=== PATIENT | female | born 1940 | race Caucasian/White ===

== ENCOUNTER 2017-08-28 14:25 | Outpatient (CLI) | payer MEDICARE, MEDICAID ==
[~2017-08-28 14:25] MED LIST: ASPIR 8181 MG ORAL; GABAPENTIN400 MG ORAL; LEVOTHYROXINE75 MCG ORAL; LORAZEPAM0.5 MG ORAL; MULTIVITAMINS1 EAC2 ORAL; NAMENDA5 MG ORAL; TRIHEXYPHENIDYL2 MG ORAL; ZYPREXA10 MG ORAL
[2017-08-28 15:40] VITALS: BP 121/68
--- NOTE | 2017-08-28 16:16 | GI Initial Consult Note ---
BritneyMary Cameron N.P. 08/28/17 1616: History of Present Illness General Date patient seen: Aug 28, 2017 Time patient seen: 16:10 Referring physician: RENEE Reason for Consultation: MELENA/TARRY STOOLS Present Illness HPI 70 year old female patient referred by Dr. Rees for complaint of black tarry stools. Last colonoscopy was performed in 2011 noted with a colonic polyp and H. pylori positive. She presents today c/o of black tarry stools / melena. Denies any abdominal pain. Denies any unintentional weight loss or changes in dietary habits. No signs of abuse or neglect. Patient is not fall risk. Home Meds Reported Medications Calcium Carbonate (CALCIUM) 500 Mg Tab.chew, 500 MG PO DAILY, TAB 09/03/17 Multivitamins* (MULTIVITAMINS*) 1 Each Tablet, 1 TAB ORAL DAILY, TAB 0 Refills 08/01/14 Aspirin* (ASPIR 81*) 81 Mg Tablet.dr, 81 MG ORAL DAILY, TAB 08/01/14 Levothyroxine Sodium* (LEVOTHYROXINE SODIUM*) 75 Mcg Tablet, 75 MCG ORAL DAILY, TAB Take in the morning on an empty stomach, at least 30 minutes before food. 08/01/14 Gabapentin* (GABAPENTIN*) 400 Mg Capsule, 400 MG ORAL TWICE A DAY, CAP 0 Refills 08/01/14 Trihexyphenidyl Hcl* (ARTANE*) 2 Mg Tablet, 2 MG ORAL TWICE A DAY, TAB 08/01/14 Olanzapine* (ZYPREXA*) 10 Mg Tablet, 10 MG ORAL BEDTIME, #30 TAB 0 Refills 08/01/14 Discontinued Reported Medications Memantine Hcl* (NAMENDA*) 5 Mg Tablet, 5 MG ORAL DAILY, TAB 08/02/14 Lorazepam* (LORAZEPAM*) 0.5 Mg Tablet, 2.5 MG ORAL BEDTIME, TAB 08/01/14 Med list reviewed/reconciled: Yes Allergies: Coded Allergies: No Known Allergies (Unverified , 09/03/17) Patient History Limited by: medical condition History Provided By: Patient, Medical Record, Caregiver PMH Narrative PAST MEDICAL HISTORY AND REVIEW OF SYSTEMS: Remarkable for hyperlipidemia, thyroid cancer, and total thyroidectomy, also right breast cancer with total radical right mastectomy. No history of stroke or seizures. No heart attack. Denies history of diabetes. No history of anemia. No respiratory problems. No renal failure. No hepatitis. PAST SURGICAL HISTORY: Thyroidectomy and right radical mastectomy. Family History Narrative Mother with pancreatic CA Father >> unknown type of CA Social History: Denies: smoking, alcohol use, drug use, other Review of Systems All Other Systems: negative except mentioned in HPI Physical Exam Vital Signs Date Time Temp Pulse Resp B/P (MAP) Pulse Ox O2 Delivery O2 Flow Rate FiO2 08/28/17 15:40 99.0 81 121/68 94 99.0 Sp02 EP Interpretation: reviewed, normal General Appearance: well appearing, no apparent distress, alert, thin Head: normocephalic EENT: PERRL/EOMI, normal ENT inspection Neck: supple Respiratory: normal breath sounds, no respiratory distress Cardiovascular: normal rate Gastrointestinal: normal inspection, non tender, soft, normal bowel sounds, non -distended Rectal: deferred Genitourinary: no CVA tenderness Musculoskeletal: normal inspection, back normal Neurologic: normal inspection, alert, oriented x3, responsive Psychiatric: normal inspection, judgement/insight normal, memory normal Skin: normal inspection, normal color, no rash, warm/dry, palpation normal, well hydrated Lymphatic: normal inspection, no adenopathy GI: Plan Problems: (1) Black tarry stools (2) Encounter for diagnostic endoscopy (3) Colonoscopy planned (4) GERD (gastroesophageal reflux disease) (5) History of breast cancer Plan EGD scheduled tomorrow 08/29/16, colonoscopy scheduled 09/03/16. - CLD & (Nulytely/Suprep/Movi-Prep) prep instructions given and acknowledged by patient. - NPO @ DC day prior procedure explained. Seen with Dr. Montoya. Thank you for this patient referral. ROBERT MONTOYA 09/03/17 1219: History of Present Illness Present Illness Home Meds Reported Medications Calcium Carbonate (CALCIUM) 500 Mg Tab.chew, 500 MG PO DAILY, TAB 09/03/17 Multivitamins* (MULTIVITAMINS*) 1 Each Tablet, 1 TAB ORAL DAILY, TAB 0 Refills 08/01/14 Aspirin* (ASPIR 81*) 81 Mg Tablet.dr 81 MG ORAL DAILY, TAB 08/01/14 Levothyroxine Sodium* (LEVOTHYROXINE SODIUM*) 75 Mcg Tablet, 75 MCG ORAL DAILY, TAB Take in the morning on an empty stomach, at least 30 minutes before food. 08/01/14 Gabapentin* (GABAPENTIN*) 400 Mg Capsule, 400 MG ORAL TWICE A DAY, CAP 0 Refills 08/01/14 Trihexyphenidyl Hcl* (ARTANE*) 2 Mg Tablet, 2 MG ORAL TWICE A DAY, TAB 08/01/14 Olanzapine* (ZYPREXA*) 10 Mg Tablet, 10 MG ORAL BEDTIME, #30 TAB 0 Refills 08/01/14 Discontinued Reported Medications Memantine Hcl* (NAMENDA*) 5 Mg Tablet, 5 MG ORAL DAILY, TAB 08/02/14 Lorazepam* (LORAZEPAM*) 0.5 Mg Tablet, 2.5 MG ORAL BEDTIME, TAB 08/01/14 Allergies: Coded Allergies: No Known Allergies (Unverified , 09/03/17) GI: Plan Plan The patient was seen and examined at bedside and all new and available data was reviewed in the patients chart. I agree with the above findings, impression and plan. (Patient seen earlier today. Signature stamp does not reflect patient encounter time.). - [facility] Cameron NKeon Aug 28, 2017 16:16 ROBERT MONTOYA Sep 03, 2017 12:19
== END 2017-08-28 14:57 | disposition home or self-care (01) ==
LOC: PAN 14:25
DX: K21.9 Gastro-esophageal reflux disease without esophagitis (principal); Z85.3 Personal history of malignant neoplasm of breast; K92.1 Melena; Z79.82 Long term (current) use of aspirin; Z85.850 Personal history of malignant neoplasm of thyroid; E78.5 Hyperlipidemia, unspecified; Z90.11 Acquired absence of right breast and nipple
CPT/HCPCS: 99201

== ENCOUNTER 2017-08-29 08:56 | Day surgery (SDC) | payer MEDICARE, MEDICAID ==
[2017-08-29] VITALS (7 sets, daily range): BP systolic 138–148; BP diastolic 72–82
[~2017-08-29] VITALS: Ht 157.5 cm; Wt 54.0 kg
--- NOTE | 2017-08-29 10:12 | Pre-Procedure Note/Attestation ---
Pre-Procedure Note/Attestation Complete Prior to Procedure Planned Procedure: not applicable Procedure Narrative: egd Indications for Procedure Pre-Operative Diagnosis: gib Attestation I attest that I discussed the nature of the procedure; its benefits; risks and complications; and alternatives (and the risks and benefits of such alternatives ), prior to the procedure, with the patient (or the patient's legal pharmaceutical specialty representative). I attest that, if there was a reasonable possibility of needing a blood transfusion, the patient (or the patient's legal pharmaceutical specialty representative) was given the [facility] standardized written summary, pursuant to the [place] Blood Safety Act ([place] Health and Safety Code # 1645, as amended). I attest that I re-evaluated the patient just prior to the surgery and that there has been no change in the patient's H&P, except as documented below: ROBERT WARD Aug 29, 2017 10:12
--- NOTE | 2017-08-29 10:13 | Short Stay Surgery H&P ---
History of Present Illness History of Present Illness Chief Complaint see recent consult HPI Merary Childs is a 77 year old female who was admitted on for GERD Patient History Allergies: Coded Allergies: AMOXICILLIN (Verified Allergy, Intermediate, hives, 08/01/14) PAST MEDICAL HISTORY: Past Surgeries: Social History: Medication History Scheduled Aspirin* (Aspir 81*), 81 MG ORAL DAILY, (Reported) Gabapentin* (Gabapentin*), 400 MG ORAL TWICE A DAY, (Reported) Levothyroxine Sodium* (Levothyroxine Sodium*), 75 MCG ORAL DAILY, (Reported) Lorazepam* (Lorazepam*), 2.5 MG ORAL BEDTIME, (Reported) Memantine Hcl* (Namenda*), 5 MG ORAL DAILY, (Reported) Multivitamins* (Multivitamins*), 1 TAB ORAL DAILY, (Reported) Olanzapine* (Zyprexa*), 10 MG ORAL BEDTIME, (Reported) Trihexyphenidyl Hcl* (Artane*), 2 MG ORAL TWICE A DAY, (Reported) Plan Attestation Are the patient's medical conditions optimized for surgery? ROBERT WARD Aug 29, 2017 10:13
[2017-08-29 12:51] LABS: BASOPHILS % (AUTO) 0.5 % (0.0-2.0); EOSINOPHILS % (AUTO) 0.1 % (0.0-3.0); HEMATOCRIT 31.9 % (37.0-47.0); HEMOGLOBIN 10.5 G/DL (12.0-16.0); LYMPHOCYTES % (AUTO) 25.2 % (20.0-45.0); MEAN CORPUSCULAR VOLUME 95 FL (80-99); NEUTROPHILS % (AUTO) 67.2 % (45.0-75.0); PLATELET COUNT 230 K/UL (150-450); RED BLOOD COUNT 3.35 M/UL (4.20-5.40); RED CELL DISTRIBUTION WIDTH 11.5 % (11.6-14.8); WHITE BLOOD COUNT 5.9 K/UL (4.8-10.8)
[2017-08-29 12:54] LABS: ANION GAP 6 mmol/L (5-15); BLOOD UREA NITROGEN 21 mg/dL (7-18); CALCIUM 9.4 MG/DL (8.5-10.1); CARBON DIOXIDE 30 MMOL/L (21-32); CHLORIDE 104 MMOL/L (98-107); POTASSIUM 4.5 MMOL/L (3.5-5.1); SODIUM 140 MMOL/L (136-145)
[2017-08-29] MEDS ORDERED: Lidocaine 1% MPF 10mg/ml 5ml ONE (13:50)
[2017-08-29] MEDS ORDERED: Propofol 200mg/20ml IV ONE ×2 (13:50→14:00)
[2017-08-29] MEDS ORDERED: LR 1000ml ONE (13:50)
--- NOTE | 2017-08-29 14:03 | Endoscopy Procedure Note ---
Endoscopy Procedure Note General Indication for Procedure: gib Procedures Performed: EGD Operative Findings/Diagnosis: gu Specimen: yes Pt Tolerated Procedure Well: Yes Estimated Blood Loss: none Anesthesia Anesthesiologist: memo Anesthesia: MAC Inserted Devices Implant(s) used?: No GI Core Measures 50 yrs or older w/o bx or poly: Not Applicable 10yrs. F/U not recommended: Not Applicable ROBERT WARD Aug 29, 2017 14:03
--- NOTE | 2017-08-29 14:15 | Immediate Post-Op Evaluation ---
Immediate Post-Op Evalulation Immediate Post-Op Evalulation Procedure: EGD Date of Evaluation: Aug 29, 2017 Time of Evaluation: 14:14 IV Fluids: 100 Blood Pressure Systolic: 130 Blood Pressure Diastolic: 74 Pulse Rate: 59 Respiratory Rate: 14 O2 Sat by Pulse Oximetry: 100 Temperature (Fahrenheit): 97.3 Nausea: No Vomiting: No Complications none Patient Status: awake, reacts, patent Hydration Status: adequate Drug: none KIMBERLY HOU CRNA Aug 29, 2017 14:15
--- NOTE | 2017-08-29 14:17 | Anethesia Preoperative Eval ---
Anesthesia Pre-op PMH/ROS General Date of Evaluation: Aug 29, 2017 Time of Evaluation: 14:50 Anesthesiologist: Latisha ASA Score: ASA 2 Mallampati Score Class I : Soft palate, uvula, fauces, pillars visible Class II: Soft palate, uvula, fauces visible Class III: Soft palate, base of uvula visible Class IV: Only hard plate visible Mallampati Classification: Class II Surgeon: belkis Diagnosis: GERD Surgical Procedure: EGD Anesthesia History: none Family History: no anesthesia problems Allergies: Coded Allergies: No Known Allergies (Unverified , 08/29/17) Medications: see eMAR Past Medical History Cardiovascular: Denies: HTN, CAD, TN, valve dz, arrhythmia, other Pulmonary: Denies: asthma, COPD, YARA, other Gastrointestinal/Genitourinary: Reports: GERD, Denies: CRI, ESRD, other Neurologic/Psychiatric: Denies: dementia, CVA, depression/anxiety, TIA, other Endocrine: Reports: hypothyroidism, Denies: DM, steroids, other HEENT: Denies: cataract (L), cataract (R), glaucoma, [place] (L), [place] (R), other Musculoskeletal/Integumentary: Denies: OA, RA, DJD, DDD, edema, other PSxH Narrative: breast ca/mastectomy Anesthesia Pre-op Phys. Exam Physician Exam Last Vital Signs Date Time Temp Pulse Resp B/P (MAP) Pulse Ox O2 Delivery O2 Flow Rate FiO2 08/29/17 11:52 98.0 53 18 139/74 97 Room Air 98.0 Constitutional: NAD Neurologic: CN 2-12 intact Cardiovascular: RRR Respiratory: CTA Gastrointestinal: S/NT/ND Airway Exam Mallampati Classification 2 Mallampati Score: Class II MO: full ROM: full Dentures: no upper, no lower Anesthesia Pre-op A/P Labs Hematology Test 08/29/17 12:35 White Blood Count 5.9 K/UL (4.8-10.8) Red Blood Count 3.35 M/UL (4.20-5.40) L Hemoglobin 10.5 G/DL (12.0-16.0) L Hematocrit 31.9 % (37.0-47.0) L Mean Corpuscular Volume 95 FL (80-99) Mean Corpuscular Hemoglobin 31.5 PG (27.0-31.0) H Mean Corpuscular Hemoglobin Concent 33.1 G/DL (32.0-36.0) Red Cell Distribution Width 11.5 % (11.6-14.8) L Platelet Count 230 K/UL (150-450) Mean Platelet Volume 7.0 FL (6.5-10.1) Neutrophils (%) (Auto) 67.2 % (45.0-75.0) Lymphocytes (%) (Auto) 25.2 % (20.0-45.0) Monocytes (%) (Auto) 7.0 % (1.0-10.0) Eosinophils (%) (Auto) 0.1 % (0.0-3.0) Basophils (%) (Auto) 0.5 % (0.0-2.0) Chemistry Test 08/29/17 12:35 Sodium Level 140 MMOL/L (136-145) Potassium Level 4.5 MMOL/L (3.5-5.1) Chloride Level 104 MMOL/L (98-107) Carbon Dioxide Level 30 MMOL/L (21-32) Anion Gap 6 mmol/L (5-15) Blood Urea Nitrogen 21 mg/dL (7-18) H Creatinine 1.0 MG/DL (0.55-1.30) Estimat Glomerular Filtration Rate mL/min (>60) Glucose Level 92 MG/DL (74-106) Calcium Level 9.4 MG/DL (8.5-10.1) Studies Pre-op Studies: EKG - sr Risk Assessment & Plan Assessment: na Plan: mac Status Change Before Surgery: No Pre-Antibiotics Drug: none IKMBERLY HOU CRNA Aug 29, 2017 14:17
--- NOTE | 2017-08-29 14:46 | 48 Hour Post Anesthesia Eval ---
Post Anesthesia Evaluation Procedure: EGD Date of Evaluation: Aug 29, 2017 Time of Evaluation: 14:45 Blood Pressure Systolic: 139 0: 74 Pulse Rate: 70 Respiratory Rate: 14 O2 Sat by Pulse Oximetry: 99 Airway: patent Nausea: No Vomiting: No Hydration Status: adequate Mental Status/LOC: patient returned to baseline Post-Anesthesia Complications: none Follow-up care needed: N/A KIMBERLY HOU CRNA Aug 29, 2017 14:46
--- NOTE | 2017-08-29 19:15 | Procedure Note ---
DATE OF PROCEDURE: 08/29/2017 SURGEON: Brett Montoya M.D. ANESTHESIOLOGIST: Lauren Good CRNA. REFERRING PHYSICIAN: Dr. Rees. PROCEDURE: Upper endoscopy with biopsy. ANESTHESIA: Per Lauren BOGGS. INSTRUMENT: Olympus adult flexible upper endoscope. INDICATION: Upper GI bleeding. The procedure, risks, benefits, and possible consequences, including hemorrhage, aspiration, perforation and infection, and alternative treatments, were explained to the patient/legal guardian by Dr. Brett Montoya and the patient/legal guardian understood and accepted these risks. DESCRIPTION OF PROCEDURE: After informed consent was obtained and the patient was adequately sedated, Olympus upper endoscope was advanced from mouth to the second portion of duodenum and retroflexion was performed in the stomach. The patient had roughly about 1-cm ulcer below the cardia of the stomach around the greater curvature without any visible vessel or adherent clot, most probably the source of bleeding. The patient had evidence of mild duodenitis, mild gastritis. Random biopsy from antrum and body was obtained to rule out H. pylori infection. The patient tolerated the procedure well without any complication. SUMMARY OF FINDINGS: 1. Gastric ulcer, status post biopsy of the antrum and body to rule out H. pylori infection. 2. Also, status post biopsy of the edge of the ulcer, rule out malignancy. RECOMMENDATIONS: The patient to be started on PPI daily. Monitor hemoglobin and hematocrit and transfuse as needed. The patient is scheduled to come back for colonoscopy on next week. I want to thank, Dr. Rees, for this kind referral. Brett Montoya M.D. DR: Sven JOB#: [id number] CC: Hetal Rees
--- NOTE | 2017-09-03 20:21 | Cardiology Report ---
APPROVED REPORT EKG Measurement Heart [id number] FL [id number] [id number] Sinus bradycardia Moderate voltage criteria for LVH, may be normal variant Borderline ECG
== END 2017-08-29 15:00 | disposition home or self-care (01) ==
LOC: GAS 08:56
DX: K25.9 Gastric ulcer, unspecified as acute or chronic, without hemorrhage or perforation (principal); K29.50 Unspecified chronic gastritis without bleeding; B96.81 Helicobacter pylori [H. pylori] as the cause of diseases classified elsewhere; K29.80 Duodenitis without bleeding; K21.9 Gastro-esophageal reflux disease without esophagitis; Z79.82 Long term (current) use of aspirin; Z88.8 Allergy status to other drugs, medicaments and biological substances; E03.9 Hypothyroidism, unspecified; Z85.3 Personal history of malignant neoplasm of breast; Z90.10 Acquired absence of unspecified breast and nipple
CPT/HCPCS: 36415; 43239; 80048; 85025; 93005; J2704; J7120; 94003; 94150

== ENCOUNTER 2017-09-03 07:07 | Day surgery (SDC) | payer MEDICARE, MEDICAID ==
[2017-09-03] VITALS (9 sets, daily range): BP systolic 118–137; BP diastolic 60–77
[~2017-09-03] VITALS: Ht 165.1 cm; Wt 53.1 kg
[2017-09-03] MEDS ORDERED: CALCIUM500 M3 PO (08:04)
[2017-09-03] MEDS ORDERED: Midazolam 2mg/2ml Inj ONE (09:00)
[2017-09-03] MEDS ORDERED: Propofol 200mg/20ml IV ONE (09:00)
[2017-09-03] MEDS ORDERED: Lidocaine 1% MPF 10mg/ml 5ml ONE (09:00)
--- NOTE | 2017-09-03 09:00 | Pre-Procedure Note/Attestation ---
Pre-Procedure Note/Attestation Complete Prior to Procedure Planned Procedure: not applicable Procedure Narrative: colonoscopy Indications for Procedure Pre-Operative Diagnosis: screening Attestation I attest that I discussed the nature of the procedure; its benefits; risks and complications; and alternatives (and the risks and benefits of such alternatives ), prior to the procedure, with the patient (or the patient's legal promotional representative). I attest that, if there was a reasonable possibility of needing a blood transfusion, the patient (or the patient's legal promotional representative) was given the [facility] standardized written summary, pursuant to the [place] Blood Safety Act ([place] Health and Safety Code # 1645, as amended). I attest that I re-evaluated the patient just prior to the surgery and that there has been no change in the patient's H&P, except as documented below: ROBERT WARD Sep 03, 2017 09:00
--- NOTE | 2017-09-03 09:00 | Short Stay Surgery H&P ---
History of Present Illness History of Present Illness Chief Complaint see recent consult note HPI Merary Childs is a 77 year old female who was admitted on for Hx Of Colon Polyps Patient History Allergies: Coded Allergies: No Known Allergies (Unverified , 09/03/17) PAST MEDICAL HISTORY: Past Surgeries: Social History: Medication History Scheduled Aspirin* (Aspir 81*), 81 MG ORAL DAILY, (Reported) Calcium Carbonate (Calcium), 500 MG PO DAILY, (Reported) Gabapentin* (Gabapentin*), 400 MG ORAL TWICE A DAY, (Reported) Levothyroxine Sodium* (Levothyroxine Sodium*), 75 MCG ORAL DAILY, (Reported) Multivitamins* (Multivitamins*), 1 TAB ORAL DAILY, (Reported) Olanzapine* (Zyprexa*), 10 MG ORAL BEDTIME, (Reported) Trihexyphenidyl Hcl* (Artane*), 2 MG ORAL TWICE A DAY, (Reported) Discontinued Medications Lorazepam* (Lorazepam*), 2.5 MG ORAL BEDTIME, (Reported) Discontinued Reason: Pt stopped taking med Memantine Hcl* (Namenda*), 5 MG ORAL DAILY, (Reported) Discontinued Reason: Pt stopped taking med Physical Exam Vital Signs Last Vital Signs Date Time Temp Pulse Resp B/P (MAP) Pulse Ox O2 Delivery O2 Flow Rate FiO2 09/03/17 07:42 96.8 58 18 129/66 99 Room Air 96.8 Plan Attestation Are the patient's medical conditions optimized for surgery? ROBERT WARD Sep 03, 2017 09:00
--- NOTE | 2017-09-03 09:24 | Anethesia Preoperative Eval ---
Anesthesia Pre-op PMH/ROS General Date of Evaluation: Sep 03, 2017 Time of Evaluation: 08:47 Anesthesiologist: Citlali ASA Score: ASA 2 Mallampati Score Class I : Soft palate, uvula, fauces, pillars visible Class II: Soft palate, uvula, fauces visible Class III: Soft palate, base of uvula visible Class IV: Only hard plate visible Mallampati Classification: Class I Surgeon: Lindsay Diagnosis: hx of colon polyp Surgical Procedure: Colonoscopy Anesthesia History: none Family History: no anesthesia problems Allergies: Coded Allergies: No Known Allergies (Unverified , 09/03/17) Medications: see eMAR Past Medical History Cardiovascular: Reports: HTN Pulmonary: Denies: asthma, COPD, YARA, other Gastrointestinal/Genitourinary: Reports: GERD, other - hx of black stary stools Neurologic/Psychiatric: Reports: depression/anxiety, other - bipolar disorder, Parkinson's Dx Endocrine: Reports: other - thyroid CA, breast CA, Gout HEENT: Reports: cataract (L), cataract (R) Hematology/Immune: Denies: anemia, DVT, bleeding disorder, other Musculoskeletal/Integumentary: Reports: OA PSxH Narrative: thyroidectomy 2013, Right hip lesion removal 2009, R breast mastectomy Anesthesia Pre-op Phys. Exam Physician Exam Last Vital Signs Date Time Temp Pulse Resp B/P (MAP) Pulse Ox O2 Delivery O2 Flow Rate FiO2 09/03/17 07:42 96.8 58 18 129/66 99 Room Air 96.8 Constitutional: NAD Neurologic: CN 2-12 intact Cardiovascular: RRR Respiratory: CTA Gastrointestinal: S/NT/ND Airway Exam Mallampati Score: Class I MO: full ROM: full Teeth: intact Dentures: no upper, no lower Anesthesia Pre-op A/P Labs chart reviewed Studies Pre-op Studies: EKG - NSB 52 bpm Risk Assessment & Plan Assessment: A&Ox3 Plan: MAC Status Change Before Surgery: No Pre-Antibiotics Given Within 1 Hr of Incision: No - none per surgeon Irene Godwin CRNA Sep 03, 2017 09:24
--- NOTE | 2017-09-03 09:25 | 48 Hour Post Anesthesia Eval ---
Post Anesthesia Evaluation Procedure: Colonoscopy with biopsy x 3 polyps Date of Evaluation: Sep 03, 2017 Time of Evaluation: 09:54 Blood Pressure Systolic: 122 0: 67 Pulse Rate: 60 Respiratory Rate: 18 Temperature (Fahrenheit): 98.2 O2 Sat by Pulse Oximetry: 99 Airway: patent Nausea: No Vomiting: No Pain Intensity: 0 Hydration Status: adequate Mental Status/LOC: patient returned to baseline Post-Anesthesia Complications: none noted, pt feeling slightly gassy but no other pain noted Follow-up care needed: patient intructions given Irene Godwin CRNA Sep 03, 2017 09:25
--- NOTE | 2017-09-03 09:25 | Immediate Post-Op Evaluation ---
Immediate Post-Op Evalulation Immediate Post-Op Evalulation Procedure: Colonoscopy with biopsy Date of Evaluation: Sep 03, 2017 Time of Evaluation: 09:40 IV Fluids: NSS 500 ml Blood Products: 0 Estimated Blood Loss: 0 Urinary Output: 0 Blood Pressure Systolic: 126 Blood Pressure Diastolic: 66 Pulse Rate: 58 Respiratory Rate: 15 O2 Sat by Pulse Oximetry: 98 Temperature (Fahrenheit): 98.2 Pain Score (1-10): 0 Nausea: No Vomiting: No Complications none noted Patient Status: awake, reacts, patent Hydration Status: adequate Given Within 1 Hr of Incision: Irene Godinez CRNA Sep 03, 2017 09:25
--- NOTE | 2017-09-03 09:35 | Endoscopy Procedure Note ---
Endoscopy Procedure Note General Indication for Procedure: screening Procedures Performed: colonoscopy Operative Findings/Diagnosis: 3 polyps Specimen: yes Pt Tolerated Procedure Well: Yes Estimated Blood Loss: minimal Anesthesia Anesthesiologist: sanaz Anesthesia: MAC Inserted Devices Implant(s) used?: No Quality Quality of Bowel Preparation: Good Did scope reach the cecum?: Yes Was there any complications?: No GI Core Measures 50 yrs or older w/o bx or poly: No 10yrs. F/U not recommended: Yes If not recommended, why?: Above average risk 10 yrs. F/U needed: Yes 18 years or older w/prev. colo: No <3yrs. since last colonoscopy: No ROBERT WARD Sep 03, 2017 09:35
[2017-09-03 10:16] LABS: BASOPHILS % (AUTO) 0.4 % (0.0-2.0); EOSINOPHILS % (AUTO) 0.2 % (0.0-3.0); HEMATOCRIT 30.2 % (37.0-47.0); HEMOGLOBIN 10.1 G/DL (12.0-16.0); LYMPHOCYTES % (AUTO) 22.5 % (20.0-45.0); MEAN CORPUSCULAR VOLUME 94 FL (80-99); MONOCYTES % (AUTO) 9.3 % (1.0-10.0); NEUTROPHILS % (AUTO) 67.7 % (45.0-75.0); PLATELET COUNT 250 K/UL (150-450); RED CELL DISTRIBUTION WIDTH 11.6 % (11.6-14.8); WHITE BLOOD COUNT 4.3 K/UL (4.8-10.8)
--- NOTE | 2017-09-03 14:15 | Cardiology Report ---
APPROVED REPORT EKG Measurement Heart [id number] NV 144P3 [id number] Sinus bradycardia Minimal voltage criteria for LVH, may be normal variant Borderline ECG
--- NOTE | 2017-09-03 15:02 | Procedure Note ---
DATE OF PROCEDURE: 09/03/2017 SURGEON: Brett Montoya M.D. ANESTHESIA: Per Citlali BOGGS. PROCEDURE: Colonoscopy with snare polypectomy and biopsy. INSTRUMENT: Olympus adult flexible colonoscope. INDICATIONS: Screening colonoscopy. The procedure, risks, benefits, and possible consequences, including hemorrhage, aspiration, perforation and infection, and alternative treatments, were explained to the patient/legal guardian by Dr. Brett Montoya and the patient/legal guardian understood and accepted these risks. DESCRIPTION OF PROCEDURE: After informed consent was obtained and the patient was adequately sedated, first rectal exam was performed, which was positive for internal and external hemorrhoids. Then, the scope was advanced from rectum into the cecum, then subsequently into the terminal ileum. Quality of prep was good. The patient had a total of three polyps, one in the proximal ascending colon. Diminutive polyp removed with the cold biopsy forceps technique. Then, the patient had one sessile polyp measured roughly about 4 mm to 5 mm in the proximal transverse colon, removed with a hot snare polypectomy technique. The patient had one diminutive polyp in the sigmoid area removed with a cold biopsy forceps technique. The retroflexion in the rectum showed evidence of internal hemorrhoid. Otherwise, the rest of the colonoscopic examination grossly within normal limits. The patient tolerated the procedure well without any complication. SUMMARY OF FINDINGS: 1. Internal and external hemorrhoids. 2. Three colonic polyps removed. See above for details. RECOMMENDATIONS: 1. Follow biopsy results and treat accordingly. 2. Given three polyps, recommended repeat colonoscopy in three years. Brett Montoya M.D. DR: LULY JOB#: [id number] CC:
== END 2017-09-03 11:15 | disposition home or self-care (01) ==
LOC: GAS 07:07
DX: Z12.11 Encounter for screening for malignant neoplasm of colon (principal); K64.4 Residual hemorrhoidal skin tags; K64.8 Other hemorrhoids; K63.5 Polyp of colon; R00.1 Bradycardia, unspecified; Z79.82 Long term (current) use of aspirin; I10 Essential (primary) hypertension; K21.9 Gastro-esophageal reflux disease without esophagitis; F41.9 Anxiety disorder, unspecified; F32.9 Major depressive disorder, single episode, unspecified; F31.9 Bipolar disorder, unspecified; G20 Parkinson's disease; Z85.3 Personal history of malignant neoplasm of breast; Z85.850 Personal history of malignant neoplasm of thyroid; M19.90 Unspecified osteoarthritis, unspecified site; E89.0 Postprocedural hypothyroidism; Z90.11 Acquired absence of right breast and nipple
CPT/HCPCS: 36415; 45380; 45384; 85025; 93005; J2250; J2704; 94003; 94150